=== PATIENT | female | born 1985 | race Caucasian/White ===

== ENCOUNTER 2016-08-28 11:19 | Outpatient (CLI) | payer MEDICAID ==
[~2016-08-28] VITALS: Ht 154.9 cm; Wt 63.4 kg
[2016-08-28 11:29] VITALS: Ht 154.9 cm; Wt 63.4 kg
[2016-08-28 11:31] VITALS: BP 110/62
[2016-08-28] MEDS ORDERED: PREN1TAB17 PO (11:33)
[2016-08-28] MEDS ORDERED: FERR134T PO (11:33)
--- NOTE | 2016-08-28 12:38 | RADRPT ---
PROCEDURE: US OB. CLINICAL INDICATION: Low VELIA , pain TECHNIQUE: Transabdominal views of the pelvis are available for review. COMPARISON: No prior studies are available for comparison. FINDINGS: There is a single intrauterine gestation in a vertex position. The heart rate is noted at 137 bpm. The placenta is anterior. The VELIA measures 12.5 cm. RPTAT: AA IMPRESSION: Normal VELIA. .Vick Eller MD, MD Date Time Electronically viewed and signed by .Vick Eller MD, on 08/28/2016 12:38 .S/
[2016-08-28 13:04] LABS: ADD SCAN DIFF NO
[2016-08-28 13:13] LABS: ADD UMIC NO; URINE BILIRUBIN (Dip) NEGATIVE (NEGATIVE); URINE BLOOD (Dip) NEGATIVE (NEGATIVE); URINE COLOR LT. YELLOW (YELLOW); URINE KETONES (Dip) NEGATIVE (NEGATIVE); URINE LEUKOCYTE ESTERASE (Dip) NEGATIVE (NEGATIVE); URINE NITRITE (Dip) NEGATIVE (NEGATIVE); URINE TOTAL PROTEIN (Dip) NEGATIVE (NEGATIVE); URINE UROBILINOGEN (Dip) 0.2 E.U./dL (0.1-1.0)
[2016-08-28 13:57] LABS: BASOPHILS % 0.4 % (0.0-2.0); EOSINOPHILS # 0.1 10^3/ul (0.0-0.5); EOSINOPHILS % 1.1 % (0.0-7.0); HEMATOCRIT 32.4 % (37.0-47.0); HEMOGLOBIN 11.2 g/dl (12.0-16.0); LYMPHOCYTES # 1.6 10^3/ul (0.8-2.9); LYMPHOCYTES % 14.3 % (15.0-51.0); MEAN CORPUSCULAR HEMOGLOBIN 33.7 pg (29.0-33.0); MEAN CORPUSCULAR HGB CONC 34.6 g/dl (32.0-37.0); MEAN CORPUSCULAR VOLUME 97.6 fl (82.0-101.0); MEAN PLATELET VOLUME 10.5 fl (7.4-10.4); MONOCYTE # 1.4 10^3/ul (0.3-0.9); MONOCYTES % 12.4 % (0.0-11.0); NEUTROPHIL # 7.9 10^3/ul (1.6-7.5); NEUTROPHILS % 70.1 % (39.0-77.0); PLATELET COUNT 268 10^3/UL (140-415); RED BLOOD COUNT 3.32 10^6/ul (4.20-5.40); WHITE BLOOD COUNT 11.2 10^3/ul (4.8-10.8)
--- NOTE | 2016-08-28 14:32 | CONS ---
Date/Time of Note Date/Time of Note DATE: 08/28/16 TIME: 14:24 Consultation Date/Type/Reason Admit Date/Time August 28, 2016 OB triage consult Reason for Consultation This patient is a 30 years old 3 para 2 0 both deliveries spontaneous vaginal. Her due date is November 10, 2016 which makes her 29 weeks and 1 day. Today she came to OB triage complaining of watery vaginal discharge which happened this morning . she has no other complaints. On questioning,no history of allergy to any medication ,. On physical examination her vital signs are normal; blood pressure 110/70 pulse rate 91 respiration 16 temperature 98.1. Her abdomen is soft no contraction. heart tones normal Pelvic examination: her cervix is closed thick and no bloody discharge Laboratory studies: her urinalysis is normal no evidence of urinary tract infection. On vaginal test RUM+ is negative , her CBC is normal, WBC is 11.2 hemoglobin 11.2 also hematocrit 32.4. We ordered an ultrasound which reported the single intrauterine gestation in vertex presentation , heart tone was 137 and VELIA was 12.4 cm Hx of Present Illness Laboratory Tests Test 08/28/16 11:05 White Blood Count 11.210^3/ul Red Blood Count 3.3210^6/ul Hemoglobin 11.2g/dl Hematocrit 32.4% Mean Corpuscular Volume 97.6fl Mean Corpuscular Hemoglobin 33.7pg Mean Corpuscular Hemoglobin Concent 34.6g/dl Red Cell Distribution Width 13.0% Platelet Count 63419^3/UL Mean Platelet Volume 10.5fl Neutrophils % 70.1% Lymphocytes % 14.3% Monocytes % 12.4% Eosinophils % 1.1% Basophils % 0.4% Nucleated Red Blood Cells % 0.0/100WBC Neutrophils # 7.910^3/ul Lymphocytes # 1.610^3/ul Monocytes # 1.410^3/ul Eosinophils # 0.110^3/ul Basophils # 0.010^3/ul Nucleated Red Blood Cells # 0.010^3/ul Urine Color LT. YELLOW Urine Clarity CLEAR Urine pH 7.0 Urine Specific [place] <=1.005 Urine Ketones NEGATIVE Urine Nitrite NEGATIVE Urine Bilirubin NEGATIVE Urine Urobilinogen 0.2 E.U./dL Urine Leukocyte Esterase NEGATIVE Urine Hemoglobin NEGATIVE Urine Glucose 0.1%% Urine Total Protein NEGATIVE Membranes Rupture NEGATIVE Constitutional: No chills, No diaphoresis, No disoriented, No febrile, No improved, No no complaints, No other, No poor po, No requiring IVF, No requiring O2 Eyes: No discharge, No no complaints, No other, No pain, No redness, No visual change ENT: No bleeding, No congestion, No discharge, No dysphagia, No no complaints, No other, No pain, No sore throat Respiratory: No cough, No no complaints, No other, No pain, No pleuritic pain, No shortness of breath, No sputum, No wheezing Cardiovascular: No chest pain, No edema, No lightheadedness, No no complaints, No orthopenea, No other, No palpitations, No paroxysmal nocturnal dyspnea Gastrointestinal: No blood, No constipation, No decreased appetite, No diarrhea , No flatus, No nausea, No no complaints, No other, No pain, No passing stool, No vomiting Genitourinary: other (Her cervix is closed and thick and High no excessive discharge or bleeding noted), No bleeding, No discharge, No dysuria, No flank pain, No hematuria, No no complaints Musculoskeletal: No back pain, No bone/joint pain, No neck pain, No no complaints, No other, No restricted range of motion, No swelling Neurologic: No confusion, No dizziness, No focal-weakness, No headache, No no complaints, No other, No seizure, No syncope Endocrine: No dry skin, No no complaints, No other, No polydypsia, No polyuria , No temp intolerance Lymphatic: No adenopathy, No lymphadema, No no complaints, No other, No tender nodes Additional Comments . 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 Social History Smoking Status: Never smoker Exam/Review of Systems Vital Signs Vitals Vital Signs Date Time Temp Pulse Resp B/P Pulse Ox O2 Delivery O2 Flow Rate FiO2 08/28/16 11:31 98.4 110/62 Room Air Results Result Diagram: 08/28/16 1105 Results 24 hrs Laboratory Tests Test 08/28/16 11:05 White Blood Count 11.2 H Red Blood Count 3.32 L Hemoglobin 11.2 L Hematocrit 32.4 L Mean Corpuscular Volume 97.6 Mean Corpuscular Hemoglobin 33.7 H Mean Corpuscular Hemoglobin Concent 34.6 Red Cell Distribution Width 13.0 Platelet Count 268 Mean Platelet Volume 10.5 H Neutrophils % 70.1 Lymphocytes % 14.3 L Monocytes % 12.4 H Eosinophils % 1.1 Basophils % 0.4 Nucleated Red Blood Cells % 0.0 Neutrophils # 7.9 H Lymphocytes # 1.6 Monocytes # 1.4 H Eosinophils # 0.1 Basophils # 0.0 Nucleated Red Blood Cells # 0.0 Urine Color LT. YELLOW Urine Clarity CLEAR Urine pH 7.0 Urine Specific [place] <=1.005 L Urine Ketones NEGATIVE Urine Nitrite NEGATIVE Urine Bilirubin NEGATIVE Urine Urobilinogen 0.2 E.U./dL Urine Leukocyte Esterase NEGATIVE Urine Hemoglobin NEGATIVE Urine Glucose 0.1% H Urine Total Protein NEGATIVE Membranes Rupture NEGATIVE RASHAUN RODRIGUEZ MD August 28, 2016 14:32
== END 2016-08-28 14:22 | disposition home or self-care (01) ==
LOC: OBT 11:19 → L-D 11:20 → OBT 14:22
PROVIDERS: ATTEND Obstetrics & Gynecology
DX: O26.893 Other specified pregnancy related conditions, third trimester (principal); Z3A.29 29 weeks gestation of pregnancy
CPT/HCPCS: 36415; 76815; 81003; 84112; 85025; G0463

== ENCOUNTER 2016-10-31 02:55 | Inpatient (IN) | payer MEDICAID ==
[~2016-10-31] VITALS: Ht 154.9 cm; Wt 68.5 kg
[~2016-10-31 02:55] MED LIST: FERR134T PO; PREN1TAB17 PO
[2016-10-31 03:26] VITALS: Ht 154.9 cm; Wt 68.5 kg
[2016-10-31] MEDS ORDERED: CALC600T5 PO (03:26)
[2016-10-31 03:28] VITALS: BP 121/73; PULSE 77; RESP 18
[2016-10-31] MEDS ORDERED: AMPICILLIN 2 GM/NS (PMX) 100 ML IV ONE (03:30)
[2016-10-31] MEDS ORDERED: OXYTOCIN 30 UNITS/LR 500 ML IV SCH (03:30)
[2016-10-31] MEDS ORDERED: CARBOPROST 250 MCG INJ IM PRN ×2 (03:30→20:00)
[2016-10-31] MEDS ORDERED: IBUPROFEN 600 MG TAB PO PRN (03:30)
[2016-10-31] MEDS ORDERED: LIDOCAINE 1% (MPF) 30 ML INJ INJ PRN (03:30)
[2016-10-31] MEDS ORDERED: MISOPROSTOL 200 MCG TAB PR PRN ×2 (03:30→20:00)
[2016-10-31] MEDS ORDERED: LACTATED RINGER'S 1,000 ML IV PRN (03:30)
[2016-10-31] MEDS ORDERED: BUTORPHANOL 2 MG INJ IV PRN (03:30)
[2016-10-31] MEDS ORDERED: OXYTOCIN 30 UNITS/LR 500 ML IV PRN ×2 (03:30→20:00)
[2016-10-31] MEDS ORDERED: METHYLERGONOVINE 0.2 MG INJ IM PRN ×2 (03:30→20:00)
[2016-10-31 04:21] LABS: ADD SCAN DIFF NO
[2016-10-31] MEDS: LACTATED RINGER'S 1,000 ML IV SCH ×3 (04:25→16:50)
[2016-10-31 04:28] LABS: BASOPHILS % 0.3 % (0.0-2.0); EOSINOPHILS # 0.2 10^3/ul (0.0-0.5); EOSINOPHILS % 1.6 % (0.0-7.0); HEMATOCRIT 35.7 % (37.0-47.0); HEMOGLOBIN 12.6 g/dl (12.0-16.0); LYMPHOCYTES # 2.6 10^3/ul (0.8-2.9); MEAN CORPUSCULAR HEMOGLOBIN 33.1 pg (29.0-33.0); MEAN CORPUSCULAR HGB CONC 35.3 g/dl (32.0-37.0); MEAN CORPUSCULAR VOLUME 93.7 fl (82.0-101.0); MEAN PLATELET VOLUME 10.8 fl (7.4-10.4); MONOCYTE # 1.2 10^3/ul (0.3-0.9); MONOCYTES % 11.9 % (0.0-11.0); NEUTROPHIL # 5.7 10^3/ul (1.6-7.5); NEUTROPHILS % 58.5 % (39.0-77.0); PLATELET COUNT 233 10^3/UL (140-415); RED BLOOD COUNT 3.81 10^6/ul (4.20-5.40); RED CELL DISTRIBUTION WIDTH 12.8 % (11.5-14.5); WHITE BLOOD COUNT 9.8 10^3/ul (4.8-10.8)
[2016-10-31] MEDS ORDERED: MINERAL OIL LIGHT 10 ML VIAL TOP ONE (04:30)
[2016-10-31 04:49] LABS: INR 1.08; PARTIAL THROMBOPLASTIN TIME 26.2 Sec (25.0-35.0); PT RATIO 1.1
--- NOTE | 2016-10-31 05:09 | TRIAGE ---
OB Triage Datetime Report Generated by CPN: 10/31/2016 05:09 Datetime: 10/31/2016 04:38 Assessment Type: Admission Assessment Vaginal Bleeding: None Maternal Assessment Level of Consciousness: Fully Conscious DTR's/Clonus: DTRs 2+; No Clonus Headache: Denies Blurred Vision: No Respiratory Effort: Unlabored; Regular Rhythm; Equal Expansion Breath Sounds, Left: Clear and Equal Breath Sounds, Right: Clear and Equal Nausea/Vomiting: Denies RUQ Epigastric Pain: Denies Lower Extremities Edema: Bilateral Lower Extremities Degree: Pitting Upper Extremities Edema: None Degree: None Facial Edema: None Fall Risk Assessment History of Falling: (0) No Secondary Diagnosis: (0) No Ambulatory Aid: (0) Bedrest/Nurse Assist IV Therapy: (20) Yes Gait: (0) Normal/Bedrest/Immobile Mental Status: (0) Oriented to Own Ability Fall Score: 20 Fall Risk Score Definition: No Risk: No action required Labor Evaluation Frequency: 2.5-6 Duration (sec)2399: 60-110 Quality: Moderate Pattern: Normal: <= 5 Contractions in 10 Minutes Resting Tone [place]: Relaxed Heart Rate FHR Baseline Rate: 145 Variability: Moderate 6-25 bpm Accelerations: 15X15 Decelerations: None Category: Category I Pain Assessment Pain Scale: 8 Pain Presence: Intermittent Pain Type: Contraction Pain Location: Abdomen Pain Goal: 4 Datetime: 10/31/2016 03:38 Stage of : Labor Time of Arrival: 10/31/2016 03:38 EGA: 38.4 Arrived By: Stretcher Arrived From: TRIAGE Datetime: 10/31/2016 03:16 Vaginal Exam Dilatation (cms): 4.0 Effacement (%): 60 Station: -3 Exam By: CARLIE Swift Vaginal Bleeding: None Cervix, Consistency: Moderate Cervix, Position: Posterior Presentation 'A': Cephalic Datetime: 10/31/2016 03:15 Membrane Status: Ruptured Membranes Ruptured Date/Time: 10/31/2016 02:25 Membranes Rupture Method: Spontaneous Amniotic Fluid Color: Clear Amniotic Fluid Amount: Large Amniotic Fluid Odor: None Nitrazine: Positive Datetime: 10/31/2016 03:10 Stage of : OB Triage Assessment Type: Triage Maternal Assessment Level of Consciousness: Fully Conscious DTR's/Clonus: DTRs 2+; No Clonus Headache: Denies Blurred Vision: No Respiratory Effort: Unlabored; Regular Rhythm; Equal Expansion Breath Sounds, Left: Clear and Equal Breath Sounds, Right: Clear and Equal Nausea/Vomiting: Denies RUQ Epigastric Pain: Denies Lower Extremities Edema: Bilateral Lower Extremities Degree: Pitting Upper Extremities Edema: None Degree: None Facial Edema: None Temperature Route: Oral Fall Risk Assessment History of Falling: (0) No Secondary Diagnosis: (0) No Ambulatory Aid: (0) Bedrest/Nurse Assist IV Therapy: (0) No Gait: (0) Normal/Bedrest/Immobile Mental Status: (0) Oriented to Own Ability Fall Score: 0 Fall Risk Score Definition: No Risk: No action required Pain Assessment Pain Scale: 4 Pain Presence: Intermittent Pain Type: Cramping; Contraction Pain Location: Abdomen; Back Pain Relief Measures: Comfort Measures Datetime: 10/31/2016 03:05 Time of Arrival: 10/31/2016 02:55 EGA: 38.4 Arrived By: Ambulatory Arrived From: Home Chief Complaint: SROM @0225 and uc's q7mins Movement: Present Contractions: Regular Time Contractions Began: 10/31/2016 02:30 Contractions: q7mins Rupture of Membranes: Ruptured Vaginal Bleeding: None Vaginal Discharge: Present Abdominal Trauma: Not Applicable Patient Complaints: Contractions; Cramping; Back Pain; Other Time Provider Notified: 10/31/2016 03:20 Provider Notified: Sherman Datetime: 08/28/2016 13:07 Stage of : OB Triage Labor Evaluation Frequency: 0 Monitor Mode: External Pattern: Normal: <= 5 Contractions in 10 Minutes Resting Tone [place]: Relaxed Heart Rate FHR Baseline Rate: 155 Variability: Moderate 6-25 bpm Accelerations: 15X15 Decelerations: None Category: Category I Pain Presence: None/Denies Pain Type: N/A Datetime: 08/28/2016 12:06 Labor Evaluation Frequency: 0 Monitor Mode: External Heart Rate FHR Baseline Rate: 155 Monitor Mode: External US Variability: Moderate 6-25 bpm Accelerations: 15X15 Decelerations: Variable Category: Category I Datetime: 08/28/2016 11:52 Stage of : OB Triage Datetime: 08/28/2016 11:36 Stage of : OB Triage Assessment Type: Triage Maternal Assessment Level of Consciousness: Fully Conscious DTR's/Clonus: DTRs 2+; No Clonus Headache: Denies Blurred Vision: No Respiratory Effort: Unlabored; Regular Rhythm; Equal Expansion Breath Sounds, Left: Clear and Equal Breath Sounds, Right: Clear and Equal Nausea/Vomiting: Denies RUQ Epigastric Pain: Denies Lower Extremities Edema: None Degree: None Upper Extremities Edema: None Degree: None Facial Edema: None Temperature Route: Oral Fall Risk Assessment History of Falling: (0) No Secondary Diagnosis: (0) No Ambulatory Aid: (0) Bedrest/Nurse Assist IV Therapy: (0) No Gait: (0) Normal/Bedrest/Immobile Mental Status: (0) Oriented to Own Ability Fall Score: 0 Fall Risk Score Definition: No Risk: No action required Labor Evaluation Frequency: 0 Monitor Mode: External Heart Rate FHR Baseline Rate: 155 Monitor Mode: External US Variability: Moderate 6-25 bpm Accelerations: 15X15 Decelerations: None Pain Assessment Pain Scale: 0 Pain Presence: None/Denies Pain Type: N/A Datetime: 08/28/2016 11:34 Time of Arrival: 08/28/2016 11:20 EGA: 29.3 Arrived By: Wheelchair Arrived From: Home Chief Complaint: C/O WAtery discharge Movement: Present Rupture of Membranes: Unsure Vaginal Bleeding: None Vaginal Discharge: Present Recent Sexual Intercouse: Yes Abdominal Trauma: Not Applicable Patient Complaints: None Time Provider Notified: 08/28/2016 11:50 Provider Notified: DR. VIDALES Initial Plan: [email or web address], call MD- ORDERS FOR ROM+, VELIA, UA NST, CBC,
[2016-10-31] MEDS ORDERED: AMPICILLIN 1 GM/NS (PMX) 50 ML IV SCH (07:30)
[2016-10-31] MEDS: OXYTOCIN 30 UNITS/LR 500 ML IV SCH ×2 (12:39→13:05)
--- NOTE | 2016-10-31 13:01 | LDN ---
Date/Time of Note Date/Time of Note DATE: 10/31/16 TIME: 12:58 Delivery Summary I was called to attend the delivery due to maternal significant urge to push when primary OB that was managing labor, was on his way. Placenta Delivered: Spontaneously Meconium: none Episiotomy: No Indication for episiotomy N/A Perineal laceration: 1 Laceration repair: first degree periurethral laceration repaired using 3-0 chromic Anesthesia type: None Estimated blood loss: 200 Sponge & Needle done & correct: Yes All needle counts correct: Yes Any foreign bodies felt in the: No Problems: Infant Delivery Information Sex Infant Sex: male Apgars 1 Minute: 8 5 Minute: 9 Suctioning Nose & mouth suctioned at darrick: Yes Delee suction performed: Yes Umbilical Cord Umbilical cord with: 3 Vessels Cord Blood was obtained: Yes (cord along the legs) RM CASTANO MD Oct 31, 2016 13:01
[2016-10-31 15:30] VITALS: BP 125/72; PULSE 82; RESP 18
[2016-10-31 16:15] VITALS: BP 121/72; PULSE 80; RESP 18
--- NOTE | 2016-10-31 18:34 | HP ---
Date/Time of Note Date/Time of Note DATE: 10/31/16 TIME: 18:31 OB - History Hx of Present Free Text/Dictation C/O SROM at 0200 AM and onset of uterine contractions Last Menstrual Period: Feb 04, 2016 Estimated Due Date: Nov 10, 2016 : 3 Para: 2 Care: Good Care Ultrasounds: Normal mid trimester US Obstetrical Complications: None Medical Complications: None Past Family/Social History * Past Medical, Surgical, Family and Obstetric Histories reviewed from chart. Blood Type: O+ Rubella: immune RPR/VDRL: Negative GBS Status: Negative HBsAG: Negative OB Admission Exam Vital Signs Vital Signs Vital Signs Date Time Temp Pulse Resp B/P Pulse Ox O2 Delivery O2 Flow Rate FiO2 10/31/16 16:15 80 18 121/72 Room Air 10/31/16 15:30 98.0 Physical Exam HEENT: WNL Heart: Rhythm Normal Lungs: Clear, Equal Abdomen: WNL Extremities: Normal Reflexes: Normal Cervical Dilatation: 3cm Effacement: 50% Station: -3 Membranes: Ruptured Heart Rate: 140's Accelerations: Accelerations Present Decelerations: No Decelerations Varibility: Marked Contractions on Admission: < 5 Minutes Apart Date/Time Contractions Began: 10/31/2016 0230 Frequency of Contractions: q5 Duration: >60 seconds Intensity: Mild Last 72 hours Lab Results CBC & BMP 10/31/16 04:00 OB Assessment/Plan Other Assessment: term gestation labor pains SROM Other plan: proceed with labor CHALO FAN MD Oct 31, 2016 18:34
[2016-10-31] MEDS ORDERED: LACTATED RINGER'S 1,000 ML IV* SCH (19:41)
[2016-10-31 20:00] VITALS: BP 101/60; PULSE 70; RESP 18
[2016-10-31] MEDS ORDERED: WITCH HAZEL/GLYCERIN PAD PR PRN (20:00)
[2016-10-31] MEDS ORDERED: METHYLERGONOVINE 0.2 MG TAB PO PRN (20:00)
[2016-10-31] MEDS ORDERED: ONDANSETRON 4 MG INJ IV PRN (20:00)
[2016-10-31] MEDS ORDERED: LANOLIN 7 GM TUBE TOP PRN (20:00)
[2016-10-31] MEDS ORDERED: ACETAMINOPHEN/CODEINE #3 TAB PO PRN (20:00)
[2016-10-31] MEDS ORDERED: ZOLPIDEM 5 MG TAB PO PRN (20:00)
[2016-10-31] MEDS ORDERED: DIPHENHYDRAMINE 25 MG CAP PO PRN (20:00)
[2016-10-31 20:18] LABS: HEMOGLOBIN 12.5 g/dl (12.0-16.0)
[2016-10-31] MEDS: SENNA/DOCUSATE NA (8.6MG/50MG) TAB PO SCH (20:37)
[2016-10-31] MEDS: IBUPROFEN 600 MG TAB PO SCH (23:53)
[2016-11-01] VITALS: BP 103/62; PULSE 76; RESP 76
[2016-11-01 03:45] VITALS: BP 105/61; PULSE 73; RESP 19
[2016-11-01] MEDS: IBUPROFEN 600 MG TAB PO SCH ×3 (05:48→17:27)
[2016-11-01 08:15] VITALS: BP 96/60; PULSE 59; RESP 20
[2016-11-01 08:33] LABS: ADD SCAN DIFF NO
[2016-11-01 08:42] LABS: BASOPHILS % 0.3 % (0.0-2.0); EOSINOPHILS # 0.1 10^3/ul (0.0-0.5); HEMATOCRIT 32.4 % (37.0-47.0); HEMOGLOBIN 10.9 g/dl (12.0-16.0); LYMPHOCYTES # 2.7 10^3/ul (0.8-2.9); LYMPHOCYTES % 19.9 % (15.0-51.0); MEAN CORPUSCULAR HEMOGLOBIN 32.4 pg (29.0-33.0); MEAN CORPUSCULAR HGB CONC 33.6 g/dl (32.0-37.0); MEAN CORPUSCULAR VOLUME 96.4 fl (82.0-101.0); MONOCYTE # 1.4 10^3/ul (0.3-0.9); MONOCYTES % 10.5 % (0.0-11.0); NEUTROPHIL # 9.2 10^3/ul (1.6-7.5); NEUTROPHILS % 67.8 % (39.0-77.0); PLATELET COUNT 200 10^3/UL (140-415); RED BLOOD COUNT 3.36 10^6/ul (4.20-5.40); WHITE BLOOD COUNT 13.5 10^3/ul (4.8-10.8)
[2016-11-01] MEDS: PRENATAL VITAMIN PO SCH (09:19)
[2016-11-01] MEDS: SENNA/DOCUSATE NA (8.6MG/50MG) TAB PO SCH ×2 (09:19→20:51)
--- NOTE | 2016-11-01 14:27 | DS ---
Date/Time of Note Date/Time of Note home next day DATE: 11/01/16 TIME: 14:26 Obstetrical Discharge Record Final Diagnosis Final Diagnosis: Term delivered Other Final Diagnosis S/P vaginal delivery Vaginal Delivery Obstetrical Delivery: Spontaneous, Laceration, Repaired Condition on Discharge Physical Assessment Last Vitals: see nurses notes Voiding: Yes Bowel Movement: Yes Breast: Soft, non-tender, Filling Fundus: Firm Abdomen and Incision: soft BS + Episiotomy: perineum : Healing Calf Tenderness: No Patient Condition: Good CHALO FAN MD Nov 01, 2016 14:27
--- NOTE | 2016-11-01 14:28 | PD.PPDC ---
[employer] Discharge Instruction Provider Information Physician Information 31 y/o female had vaginal delivery Diagnosis Final Diagnosis: S/P vaginal dleivery Condition Patient Condition: Good Diet Diet: Resume Regular Diet Activity/Restrictions Activity: Normal Activity May Shower Restrictions: Nothing in the Vagina Return to Work or School: Dec 17, 2016 Follow-up Follow-up with Physician: 4, Week/Weeks Return to clinic for OB Instructions: Breast Tenderness Depression CHALO FAN MD Nov 01, 2016 14:28
[2016-11-01] MEDS ORDERED: FERR134T PO (14:30)
[2016-11-01] MEDS ORDERED: PREN1TAB17 PO (14:30)
[2016-11-01] MEDS ORDERED: IBUP-1542 PO (14:30)
[2016-11-01] MEDS ORDERED: CALC600T5 PO (14:30)
[2016-11-01 15:25] VITALS: BP 108/61; PULSE 79; RESP 20
[2016-11-01 20:00] VITALS: BP 104/70; PULSE 70; RESP 18
[2016-11-02 00:30] VITALS: BP 113/63; PULSE 75; RESP 18
[2016-11-02] MEDS: IBUPROFEN 600 MG TAB PO SCH ×3 (00:46→11:39)
[2016-11-02 04:30] VITALS: BP 97/60; PULSE 66; RESP 20
[2016-11-02 08:30] VITALS: BP 100/59; PULSE 62; RESP 18
[2016-11-02] MEDS ORDERED: DIPHTH/TET/ACEL PERTUSS (ADULT) 0.5 ML VIAL IM* ONE (09:00)
[2016-11-02] MEDS ORDERED: MEASLES,MUMPS,RUBELLA VACCINE INJ SC* ONE (09:00)
[2016-11-02] MEDS ORDERED: VARICELLA VACCINE LIVE/PF 1,350 UNIT/0.5 ML ML SC* ONE (09:00)
[2016-11-02] MEDS: PRENATAL VITAMIN PO SCH (09:30)
[2016-11-02] MEDS: SENNA/DOCUSATE NA (8.6MG/50MG) TAB PO SCH (09:31)
== END 2016-11-02 15:15 | disposition home or self-care (01) | DRG 775 ==
LOC: OBT 02:55 → L-D 03:06 → OBT 03:20 → L-D 03:20 → PP1 15:25
PROVIDERS: ADMIT Obstetrics & Gynecology; ATTEND Obstetrics & Gynecology
PROC: 10E0XZZ Delivery of Products of Conception, External Approach (ICD-10-PCS; principal; 2016-10-31)
PROC: 0HQ9XZZ Repair Perineum Skin, External Approach (ICD-10-PCS; 2016-10-31)
DX: O70.0 First degree perineal laceration during delivery (principal); Z37.0 Single live birth; Z3A.38 38 weeks gestation of pregnancy
CPT/HCPCS: 84112; 85014; 85018; 85025; 85610; 85730; 86592; 86900; 86901; 87340; 90715; 90716; G0463; J0290; J0595; J2210; J2590; J7120